=== PATIENT | male | born 1960 | race Caucasian/White ===

== ENCOUNTER 2017-01-15 15:14 | Emergency (ER) | payer OTHER ==
[~2017-01-15 15:14] MED LIST: ALBUTEROL IN200 PUFF INH; ATIVAN1 MG PO; LEVAQUIN500 MG PO; NEURONTIN300 MG PO; NEURONTIN600 MG PO; NICODERM 21MG PA1 EA TD
== END 2017-01-15 17:35 | disposition other institution (70) ==
LOC: ER 15:14
DX: J44.1 Chronic obstructive pulmonary disease with (acute) exacerbation (principal); F17.210 Nicotine dependence, cigarettes, uncomplicated; Z99.81 Dependence on supplemental oxygen; Z79.899 Other long term (current) drug therapy; Z88.0 Allergy status to penicillin
CPT/HCPCS: 99285-25

== ENCOUNTER 2017-01-15 15:14 | Inpatient (IN) | payer OTHER ==
[~2017-01-15] VITALS: Ht 172.7 cm; Wt 64.0 kg
[2017-01-15 15:46] LABS: BASO % 0.1 % (0.2-1.2); GRAN # 13.6 10_X3_uL (1.8-5.4); GRAN % 88.5 % (34.0-67.9); HEMATOCRIT 50.7 % (40-51); HEMOGLOBIN 17.7 g/dL (13.7-17.5); LYMPH # 0.6 10_X3_uL (1.3-3.6); LYMPH % 3.6 % (21.8-53.1); MEAN CORPUSCULAR HEMOGLOBIN 34.8 pg (27.0-33.0); MEAN CORPUSCULAR HGB CONC 34.9 g/dL (32.0-36.0); MEAN CORPUSCULAR VOLUME 99.6 fL (79-92); MONO # 1.2 10_X3_uL (0.3-0.8); MONO % 7.8 % (5.3-12.2); PLATELET COUNT 198 x10_3/uL (163-337); RED BLOOD COUNT 5.09 x10_6/uL (4.6-6.1); RED CELL DISTRIBUTION WIDTH 13.2 % (11.6-14.4); WHITE BLOOD COUNT 15.4 x10_3/uL (4.2-9.1)
[2017-01-15 16:01] LABS: BLOOD UREA NITROGEN 7 mg/dL (7-18); CALCIUM 9.2 mg/dL (8.7-10.7); CARBON DIOXIDE 24 mmol/L (21-32); CREATINE KINASE 69 U/L (35-232); CREATININE < 0.5 mg/dL (0.6-1.3); GLUCOSE,RANDOM 121 mg/dL (70-99); SODIUM 128 mmol/L (136-145)
[2017-01-15 16:02] LABS: POTASSIUM 3.8 mmol/L (3.5-5.1)
[2017-01-15 19:30] LABS: PARTIAL THROMBOPLASTIN TIME 28.1 SECONDS (21.3-29.3); PROTHROMBIN TIME (PATIENT) 10.4 SECONDS (9.9-11.1)
[2017-01-15 19:56] LABS: ALBUMIN 3.8 gm/dL (3.4-5.0); ALKALINE PHOSPHATASE 69 U/L (50-136); ALT/SGPT 24 U/L (7.53-40.17); AST/SGOT 38 U/L (6.66-35.34); BILIRUBIN,TOTAL 0.43 mg/dL (0.0-1.0); ETHYL ALCOHOL 85 mg/dl; MAGNESIUM 2.4 mg/dL (1.8-2.4); PHOSPHOROUS 3.8 mg/dL (2.5-4.9); TOTAL PROTEIN 7.7 gm/dL (6.4-8.2)
[2017-01-15 20:00] LABS: BILIRUBIN,DIRECT < 0.20 mg/dL (0.0-0.30)
[2017-01-16 06:59] LABS: HEMATOCRIT 43.1 % (40-51); HEMOGLOBIN 14.7 g/dL (13.7-17.5); MEAN CORPUSCULAR HEMOGLOBIN 34.5 pg (27.0-33.0); MEAN CORPUSCULAR HGB CONC 34.1 g/dL (32.0-36.0); MEAN CORPUSCULAR VOLUME 101.2 fL (79-92); MEAN PLATELET VOLUME 9.7 fl (7.5-11.5); RED BLOOD COUNT 4.26 x10_6/uL (4.6-6.1); RED CELL DISTRIBUTION WIDTH 12.8 % (11.6-14.4); WHITE BLOOD COUNT 9.7 x10_3/uL (4.2-9.1)
[2017-01-16 11:22] LABS: BLOOD UREA NITROGEN 10 mg/dL (7-18); CALCIUM 8.6 mg/dL (8.7-10.7); CARBON DIOXIDE 28 mmol/L (21-32); CREATININE < 0.5 mg/dL (0.6-1.3); GLUCOSE,RANDOM 124 mg/dL (70-99); MAGNESIUM 2.3 mg/dL (1.8-2.4); PHOSPHOROUS 3.9 mg/dL (2.5-4.9); POTASSIUM 5.1 mmol/L (3.5-5.1); SODIUM 131 mmol/L (136-145)
[2017-01-16 21:11] LABS: ARTERIAL BLD GAS O2 SATURATION 96.8 % (94-98); ARTERIAL BLOOD GAS HCO3 30.4 mmol/L (22-26); ARTERIAL BLOOD GAS PCO2 49.4 mmHg (35-48); ARTERIAL BLOOD GAS pH 7.41 (7.35-7.45)
[2017-01-17 06:48] LABS: BLOOD UREA NITROGEN 11 mg/dL (7-18); CALCIUM 8.7 mg/dL (8.7-10.7); CARBON DIOXIDE 28 mmol/L (21-32); CREATININE < 0.5 mg/dL (0.6-1.3); GLUCOSE,RANDOM 107 mg/dL (70-99); POTASSIUM 4.4 mmol/L (3.5-5.1); SODIUM 132 mmol/L (136-145)
[2017-01-17 07:08] LABS: HEMATOCRIT 41.1 % (40-51); HEMOGLOBIN 14.8 g/dL (13.7-17.5); MEAN CORPUSCULAR HEMOGLOBIN 35.6 pg (27.0-33.0); MEAN CORPUSCULAR VOLUME 98.8 fL (79-92); MEAN PLATELET VOLUME 9.9 fl (7.5-11.5); RED BLOOD COUNT 4.16 x10_6/uL (4.6-6.1); RED CELL DISTRIBUTION WIDTH 12.5 % (11.6-14.4); WHITE BLOOD COUNT 7.9 x10_3/uL (4.2-9.1)
[2017-01-18 06:38] LABS: BASO % 0.1 % (0.2-1.2); GRAN # 6.7 10_X3_uL (1.8-5.4); GRAN % 85.9 % (34.0-67.9); HEMATOCRIT 43.8 % (40-51); LYMPH # 0.4 10_X3_uL (1.3-3.6); LYMPH % 4.8 % (21.8-53.1); MEAN CORPUSCULAR HGB CONC 34.2 g/dL (32.0-36.0); MEAN CORPUSCULAR VOLUME 99.3 fL (79-92); MEAN PLATELET VOLUME 9.6 fl (7.5-11.5); MONO # 0.7 10_X3_uL (0.3-0.8); MONO % 9.2 % (5.3-12.2); PLATELET COUNT 244 x10_3/uL (163-337); RED BLOOD COUNT 4.41 x10_6/uL (4.6-6.1); RED CELL DISTRIBUTION WIDTH 12.2 % (11.6-14.4); WHITE BLOOD COUNT 7.9 x10_3/uL (4.2-9.1)
[2017-01-19 07:31] LABS: GRAN # 5.4 10_X3_uL (1.8-5.4); GRAN % 79.5 % (34.0-67.9); HEMATOCRIT 44.9 % (40-51); HEMOGLOBIN 15.5 g/dL (13.7-17.5); LYMPH # 0.4 10_X3_uL (1.3-3.6); LYMPH % 6.2 % (21.8-53.1); MEAN CORPUSCULAR HEMOGLOBIN 34.1 pg (27.0-33.0); MEAN CORPUSCULAR HGB CONC 34.5 g/dL (32.0-36.0); MEAN CORPUSCULAR VOLUME 98.7 fL (79-92); MEAN PLATELET VOLUME 9.6 fl (7.5-11.5); MONO % 14.3 % (5.3-12.2); PLATELET COUNT 278 x10_3/uL (163-337); RED BLOOD COUNT 4.55 x10_6/uL (4.6-6.1); RED CELL DISTRIBUTION WIDTH 12.1 % (11.6-14.4); WHITE BLOOD COUNT 6.8 x10_3/uL (4.2-9.1)
[2017-01-19 07:45] LABS: BLOOD UREA NITROGEN 10 mg/dL (7-18); CALCIUM 8.9 mg/dL (8.7-10.7); CARBON DIOXIDE 29 mmol/L (21-32); CREATININE 0.5 mg/dL (0.6-1.3); GLUCOSE,RANDOM 116 mg/dL (70-99); POTASSIUM 4.1 mmol/L (3.5-5.1); SODIUM 127 mmol/L (136-145)
== END 2017-01-19 15:40 | disposition home or self-care (01) | DRG 190 ==
LOC: ER 15:14 → MS 17:35
PROVIDERS: ADMIT Family Medicine
DX: J44.1 Chronic obstructive pulmonary disease with (acute) exacerbation (principal); J18.9 Pneumonia, unspecified organism; E87.1 Hypo-osmolality and hyponatremia; F10.10 Alcohol abuse, uncomplicated; D49.1 Neoplasm of unspecified behavior of respiratory system; Z59.0 Homelessness; R91.1 Solitary pulmonary nodule; I10 Essential (primary) hypertension; Z82.5 Family history of asthma and other chronic lower respiratory diseases; Z82.3 Family history of stroke; Z83.3 Family history of diabetes mellitus; Z80.9 Family history of malignant neoplasm, unspecified; F17.210 Nicotine dependence, cigarettes, uncomplicated; R42 Dizziness and giddiness; R51 Headache; Z63.4 Disappearance and death of family member; Z63.0 Problems in relationship with spouse or partner; Z68.21 Body mass index [BMI] 21.0-21.9, adult; M25.519 Pain in unspecified shoulder; M54.9 Dorsalgia, unspecified; G89.29 Other chronic pain; Z88.0 Allergy status to penicillin; Z79.899 Other long term (current) drug therapy; R25.1 Tremor, unspecified
CPT/HCPCS: 36415; 71010; 71260; 80048; 80076; 82550; 82553; 82803; 83605; 83735; 83880; 84100; 85025; 85610; 85730; 86738; 87040; 87070; 87205; 87449; 90653; 93005; 93306; 94640; 94664; 96374; 96375; 99070; 99285-25; G0480; J2930; J7040